=== PATIENT | female | born 1945 | race Two or more races ===

== ENCOUNTER 2024-04-04 15:39 | Outpatient (RCR) | payer OTHER, SELFPAY | END 2024-04-29 23:59 | disposition home or self-care (01) | LOC: SCTC 15:39 | PROVIDERS: PCP Family Medicine; Referring Provider Family Medicine; Visit Provider Nurse Practitioner Family | DX: D47.3 Essential (hemorrhagic) thrombocythemia (principal); D47.2 Monoclonal gammopathy; Z79.82 Long term (current) use of aspirin; D75.89 Other specified diseases of blood and blood-forming organs; I25.10 Atherosclerotic heart disease of native coronary artery without angina pectoris; E03.9 Hypothyroidism, unspecified | CPT/HCPCS: 99212; G0463 ==

== ENCOUNTER → 2024-04-12 | Outpatient (CLI) | payer OTHER, SELFPAY ==
[2024-04-12 13:14] LABS: Basophils % (Auto) 1 % (0-2.5); Eosinophils % (Auto) 1 % (0-10); Hematocrit 31.9 % (36.0-46.0); Hemoglobin 10.7 g/dL (12.0-16.0); Immature Granulocytes % (Auto) 1 % (0-0); Immature Granulocytes Auto 0.02 Thou/mm3 (0.00-0.00); Lymphocytes # (Auto) 0.6 Thou/mm3 (1.0-4.8); Lymphocytes % (Auto) 15 % (10-50); Mean Corpuscular HGB Conc 33.5 g/dl (31.0-37.0); Mean Corpuscular Hemoglobin 42.6 pg (25.0-35.0); Mean Corpuscular Volume 127 fL (80-100); Monocytes # (Auto) 0.3 Thou/mm3 (0.0-0.8); Monocytes % (Auto) 8 % (0-12); Neutrophils % (Auto) 76 % (37-80); Nucleated Red Blood Cell % 0 /100 WBC (0); Platelet Count 342 Thou/mm3 (140-440); RDW Standard Deviation 63.5 fL (36.4-46.3); Red Blood Count 2.51 Miln/mm3 (4.00-5.20); White Blood Count 3.9 Thou/mm3 (3.6-11.0)
[2024-04-12 13:26] LABS: Glucose Estimated Average 91 mg/dL (80-131); Hemoglobin A1C 4.8 % Hgb (4.8-6.0)
== END | disposition home or self-care (01) ==
LOC: COPL 12:29
PROVIDERS: PCP Nurse Practitioner Family; Referring Provider Nurse Practitioner Family; Visit Provider Nurse Practitioner Family
DX: G30.9 Alzheimer's disease, unspecified (principal); D64.9 Anemia, unspecified; R82.4 Acetonuria
CPT/HCPCS: 36415; 83036; 85025

== ENCOUNTER → 2024-05-03 | Outpatient (CLI) | payer OTHER, SELFPAY ==
--- NOTE | 2024-05-03 15:30 | XR_ITS ---
Examination: MRI brain without intravenous contrast. Date and time of exam: May 03, 2024 1534 hours Comparison April 18, 2020 INDICATIONS: 3 falls this year with injury to the head, followed by headaches numbness in the extremities one year Technique: Multiple axial and sagittal images of the brain obtained. Siemens high-resolution 1.5 Kylie short bore scanners utilized. Sagittal sections, T1-weighted, TR 500, TE 14, are performed. Axial sections proton-density and T2-weighted have been obtained. Inversion recovery axial images, TR 9, 260, TE 111, TI 2500. Diffusion weighted images, axial sections, TR 4800, TE 128, B value 1000 Axial sections, ADC map, TR 4800, TE 128 Findings: Enlargement of the sella turcica is not present. The optic chiasm and infundibular are not remarkable. Prepontine and interpeduncular cisterns are not enlarged. There is no localized enlargement of the medulla or annalise. Fourth ventricle and cerebellar tonsils appear normal in position. No subacute area of hemorrhage density is seen. Mass in the cerebellopontine angle region is not evident. Globes symmetrical. Orbital musculature including medial lateral rectus muscles do not exhibit abnormality. Diffusion-weighted images demonstrate no focus of restricted diffusion. 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 Impression: Negative for acute hemorrhage mass effect or midline shift No acute infarct Chronic microvascular white matter change
== END | disposition home or self-care (01) ==
LOC: SMRI 15:03
PROVIDERS: PCP Nurse Practitioner Family; Referring Provider Nurse Practitioner Family; Visit Provider Nurse Practitioner Family
DX: R90.82 White matter disease, unspecified (principal)
CPT/HCPCS: 70551

== ENCOUNTER → 2024-08-17 | Outpatient (CLI) | payer OTHER, SELFPAY ==
[2024-08-17 11:29] LABS: Basophils % (Auto) 0 % (0-2.5); Eosinophils % (Auto) 1 % (0-10); Hematocrit 34.5 % (36.0-46.0); Hemoglobin 11.8 g/dL (12.0-16.0); Immature Granulocytes % (Auto) 0 % (0-0); Immature Granulocytes Auto 0.01 Thou/mm3 (0.00-0.00); Lymphocytes # (Auto) 0.6 Thou/mm3 (1.0-4.8); Lymphocytes % (Auto) 13 % (10-50); Mean Corpuscular HGB Conc 34.2 g/dl (31.0-37.0); Mean Corpuscular Hemoglobin 42.6 pg (25.0-35.0); Mean Corpuscular Volume 125 fL (80-100); Monocytes # (Auto) 0.3 Thou/mm3 (0.0-0.8); Monocytes % (Auto) 7 % (0-12); Neutrophils # (Auto) 3.4 Thou/mm3 (1.8-7.7); Neutrophils % (Auto) 78 % (37-80); Nucleated Red Blood Cell % 0 /100 WBC (0); Platelet Count 423 Thou/mm3 (140-440); RDW Standard Deviation 65.1 fL (36.4-46.3); Red Blood Count 2.77 Miln/mm3 (4.00-5.20); White Blood Count 4.4 Thou/mm3 (3.6-11.0)
[2024-08-17 11:35] LABS: Glucose Estimated Average 94 mg/dL (80-131); Hemoglobin A1C 4.9 % Hgb (4.8-6.0)
[2024-08-17 11:53] LABS: T4 (Thyroxine) 6.7 mcg/dL (4.5-10.9)
[2024-08-17 11:56] LABS: Alanine Aminotransferase 19 U/L (10-49); Albumin, Serum 4.2 gm/dL (3.4-4.8); Albumin/Globulin Ratio 2.3 (1.2-2.2); Alkaline Phosphatase 75 U/L (46-116); Anion Gap 8 (7-16); Aspartate Amino Transferase 14 U/L (0-34); BUN/Creatinine Ratio 18 Ratio (12-20); Bilirubin,Total 1.1 mg/dL (0.3-1.2); Blood Urea Nitrogen 18 mg/dL (9-23); Calcium 9.6 mg/dL (8.3-10.6); Calcium (Corrected) 9.6 mg/dL (8.5-10.1); Carbon Dioxide 25.5 mMol/L (20.0-31.0); Cardiac Risk Estimate 2.7 RATIO (3.7-5.6); Chloride 109 mMol/L (98-107); Cholesterol 134 mg/dL (132-200); Globulin 1.8 gm/dL (2.3-3.5); Glucose 92 mg/dL (74-106); HDL Cholesterol 49 mg/dL (40-60); LDL Cholesterol,Calculated 59 mg/dL (0-130); Osmolality,Calculated 285 (275-295); Potassium 4.4 mMol/L (3.4-5.1); Sodium 142 mMol/L (136-145); Triglycerides 129 mg/dL (30-150); eGFR 58 See Note
[2024-08-17 12:57] LABS: Path Review Blood Smear Sent to Pathologist
[2024-08-22 07:46] LABS: Thyroid Peroxidase Antibodies* <1 IU/mL (<9)
== END | disposition home or self-care (01) ==
LOC: COPL 10:08
PROVIDERS: PCP Nurse Practitioner Family; Referring Provider Nurse Practitioner Family; Visit Provider Nurse Practitioner Family
DX: E03.9 Hypothyroidism, unspecified (principal); I10 Essential (primary) hypertension; D52.9 Folate deficiency anemia, unspecified
CPT/HCPCS: 36415; 80053; 80061; 82746; 83036; 84436; 84443; 85025; 86376

== ENCOUNTER → 2024-12-12 | Outpatient (CLI) | payer OTHER, SELFPAY ==
[2024-12-12 15:42] LABS: Basophils # (Auto) 0.0 Thou/mm3 (0.0-0.2); Basophils % (Auto) 1 % (0-2.5); Eosinophils # (Auto) 0.0 Thou/mm3 (0.0-0.5); Eosinophils % (Auto) 1 % (0-10); Hematocrit 34.7 % (36.0-46.0); Hemoglobin 11.8 g/dL (12.0-16.0); Immature Granulocytes Auto 0.02 Thou/mm3 (0.00-0.00); Lymphocytes # (Auto) 0.7 Thou/mm3 (1.0-4.8); Lymphocytes % (Auto) 18 % (10-50); Mean Corpuscular HGB Conc 34.0 g/dl (31.0-37.0); Mean Corpuscular Hemoglobin 41.4 pg (25.0-35.0); Mean Corpuscular Volume 122 fL (80-100); Monocytes # (Auto) 0.2 Thou/mm3 (0.0-0.8); Monocytes % (Auto) 6 % (0-12); Neutrophils # (Auto) 2.7 Thou/mm3 (1.8-7.7); Neutrophils % (Auto) 74 % (37-80); Nucleated Red Blood Cell # 0.00 Thou/mm3 (0.00-0.00); Nucleated Red Blood Cell % 0 /100 WBC (0); Platelet Count 481 Thou/mm3 (140-440); RDW Standard Deviation 60.5 fL (36.4-46.3); Red Blood Count 2.85 Miln/mm3 (4.00-5.20); White Blood Count 3.6 Thou/mm3 (3.6-11.0)
[2024-12-12 15:55] LABS: Alanine Aminotransferase 18 U/L (10-49); Albumin, Serum 4.2 gm/dL (3.4-4.8); Albumin/Globulin Ratio 1.9 (1.2-2.2); Alkaline Phosphatase 77 U/L (46-116); Anion Gap 9 (7-16); Aspartate Amino Transferase 22 U/L (0-34); BUN/Creatinine Ratio 18 Ratio (12-20); Bilirubin,Total 1.1 mg/dL (0.3-1.2); Blood Urea Nitrogen 18 mg/dL (9-23); Calcium 9.3 mg/dL (8.3-10.6); Calcium (Corrected) 9.3 mg/dL (8.5-10.1); Carbon Dioxide 25.2 mMol/L (20.0-31.0); Chloride 111 mMol/L (98-107); Creatinine (Component) 1.0 mg/dL (0.6-1.3); Globulin 2.2 gm/dL (2.3-3.5); Glucose 92 mg/dL (74-106); Osmolality,Calculated 290 (275-295); Potassium 4.0 mMol/L (3.4-5.1); Sodium 145 mMol/L (136-145); Total Protein 6.4 gm/dL (5.7-8.2); eGFR 58 See Note
[2024-12-12 15:57] LABS: Ferritin 64 ng/mL (7.3-270.7); Folate 12.99 ng/mL (>5.38); Iron 91 mcg/dL (50-170); Percent Iron Saturation 30 % (20-55); Total Iron Binding Capacity 299 mcg/dL (250-425); Unsaturated Iron Binding 208 (225-295); Vitamin B12 370 pg/mL (211-911)
[2024-12-17 13:51] LABS: Albumin 4.2 g/dL (3.8-4.8); Alpha-1-Globulin 0.2 g/dL (0.2-0.3); Alpha-2-Globulin 0.5 g/dL (0.5-0.9); Beta-1-Globulin 0.4 g/dL (0.4-0.6); Beta-2-globulin 0.3 g/dL (0.2-0.5); Gamma Globulin 0.7 g/dL (0.8-1.7); Immunoglobulin A 148 mg/dL (70-320); Immunoglobulin G 823 mg/dL (600-1540); Kappa Light Chain, Free 33.7 mg/L (3.3-19.4); Lambda Light Chain, Free 18.1 mg/L (5.7-26.3)
[2024-12-18 07:47] LABS: Beta 2 Microglobulin 2.44 mg/L (< OR = 2.51); Immunoglobulin M 33 mg/dL (50-300); Kappa/Lambda, Free Ratio 1.86 (0.26-1.65); Protein, total, serum 6.3 g/dL (6.1-8.1)
== END | disposition home or self-care (01) ==
LOC: SCTO 14:51
PROVIDERS: PCP Family Medicine; Referring Provider Nurse Practitioner Family; Visit Provider Nurse Practitioner Family
DX: D47.3 Essential (hemorrhagic) thrombocythemia (principal)
CPT/HCPCS: 36415; 80053; 82232; 82607; 82728; 82746; 82784; 83521; 83540; 83550; 84155; 84165; 85025; 86334

== ENCOUNTER 2024-12-21 14:04 | Outpatient (RCR) | payer OTHER, SELFPAY | END 2024-12-28 23:59 | disposition home or self-care (01) | LOC: SCTC 14:04 | PROVIDERS: PCP Nurse Practitioner Family; Referring Provider Nurse Practitioner Family; Visit Provider Internal Medicine Hematology & Oncology | DX: D47.3 Essential (hemorrhagic) thrombocythemia (principal); D47.2 Monoclonal gammopathy; D64.9 Anemia, unspecified; D22.5 Melanocytic nevi of trunk | CPT/HCPCS: 99212; G0463 ==

== ENCOUNTER → 2025-03-19 | Outpatient (CLI) | payer OTHER, SELFPAY ==
[2025-03-19 14:10] LABS: Alanine Aminotransferase 12 U/L (10-49); Albumin, Serum 4.3 gm/dL (3.4-4.8); Albumin/Globulin Ratio 2.2 (1.2-2.2); Alkaline Phosphatase 86 U/L (46-116); Anion Gap 10 (7-16); Aspartate Amino Transferase 21 U/L (0-34); BUN/Creatinine Ratio 14 Ratio (12-20); Bilirubin,Total 0.5 mg/dL (0.3-1.2); Blood Urea Nitrogen 13 mg/dL (9-23); Calcium 9.8 mg/dL (8.3-10.6); Calcium (Corrected) 9.8 mg/dL (8.5-10.1); Carbon Dioxide 25.9 mMol/L (20.0-31.0); Chloride 108 mMol/L (98-107); Creatinine (Component) 0.9 mg/dL (0.6-1.3); Globulin 2.0 gm/dL (2.3-3.5); Glucose 94 mg/dL (74-106); LDH (Lactate Dehydrogenase) 243 U/L (120-246); Osmolality,Calculated 286 (275-295); Potassium 3.9 mMol/L (3.4-5.1); Sodium 144 mMol/L (136-145); Total Protein 6.3 gm/dL (5.7-8.2); eGFR > 60 See Note
[2025-03-19 14:12] LABS: Basophils # (Auto) 0.0 Thou/mm3 (0.0-0.2); Basophils % (Auto) 1 % (0-2.5); Eosinophils # (Auto) 0.1 Thou/mm3 (0.0-0.5); Eosinophils % (Auto) 3 % (0-10); Hematocrit 36.9 % (36.0-46.0); Hemoglobin 12.2 g/dL (12.0-16.0); Immature Granulocytes Auto 0.02 Thou/mm3 (0.00-0.00); Immature Reticulocyte Fraction 19.2 % (3.0-15.9); Lymphocytes # (Auto) 0.9 Thou/mm3 (1.0-4.8); Lymphocytes % (Auto) 20 % (10-50); Mean Corpuscular HGB Conc 33.1 g/dl (31.0-37.0); Mean Corpuscular Hemoglobin 38.7 pg (25.0-35.0); Mean Corpuscular Volume 117 fL (80-100); Monocytes # (Auto) 0.3 Thou/mm3 (0.0-0.8); Monocytes % (Auto) 8 % (0-12); Neutrophils # (Auto) 3.0 Thou/mm3 (1.8-7.7); Neutrophils % (Auto) 68 % (37-80); Nucleated Red Blood Cell # 0.00 Thou/mm3 (0.00-0.00); Nucleated Red Blood Cell % 0 /100 WBC (0); Platelet Count 741 Thou/mm3 (140-440); RDW Standard Deviation 63.8 fL (36.4-46.3); Red Blood Count 3.15 Miln/mm3 (4.00-5.20); Reticulocyte % (Auto) 2.7 % (0.5-1.5); Reticulocyte Absolute Auto 85.7 Biln/L (25.0-75.0); Reticulocyte Hgb Content 38.6 pg (28.0-35.0); White Blood Count 4.5 Thou/mm3 (3.6-11.0)
[2025-03-19 14:15] LABS: Ferritin 51 ng/mL (7.3-270.7); Folate 7.11 ng/mL (>5.38); Iron 105 mcg/dL (50-170); Percent Iron Saturation 32 % (20-55); Total Iron Binding Capacity 319 mcg/dL (250-425); Unsaturated Iron Binding 214 (225-295); Vitamin B12 1068 pg/mL (211-911)
[2025-03-19 17:50] LABS: Path Review Blood Smear Sent to Pathologist
[2025-03-29 06:27] LABS: Haptoglobin* 36 mg/dL (43-212)
== END | disposition home or self-care (01) ==
LOC: SCTO 12:29
PROVIDERS: PCP Family Medicine; Referring Provider Nurse Practitioner Family; Visit Provider Nurse Practitioner Family
DX: D47.3 Essential (hemorrhagic) thrombocythemia (principal)
CPT/HCPCS: 36415; 80053; 82607; 82728; 82746; 83010; 83540; 83550; 83615; 85025; 85046

== ENCOUNTER 2025-03-20 15:29 | Outpatient (RCR) | payer OTHER, SELFPAY ==
--- NOTE | 2025-03-21 13:46 | CTCFLWUP_ITS ---
Patient: JUSTINA YAO : 1945 Page 4 of 6 FOLLOW UP NOTE DATE OF SERVICE: 03/20/2025 NAME: JUSTINA YAO ACCOUNT: [id number] : 1945 AGE: 79 INTERVAL HISTORY: Patient is doing well. Patient is on hydroxyurea and have no complaints from it. Patient is very active. ONCOLOGY HISTORY: DIAGNOSIS: Essential thrombocythemia, Oz 2 V6 17F mutation positive. Bone marrow biopsy negative, 11/10/2022. Currently on hydroxyurea 1 g p.o. daily, aspirin 81 mg p.o. daily. Monoclonal gammopathy of undetermined significance. History of dementia HISTORY OF PRESENT ILLNESS: Ms. Yao is here at [facility] clinic accompanied by her . Denies any complaints or concerns. Labs from 04/12/2024 show hemoglobin 10.7, MCV 127. Denies any cough, chest pain, abdominal pain or leg cramps, fever. She is currently on hydroxyurea 1 g as well as aspirin 81 mg daily. She is tolerating these medications well. Patient ambulating well without assistance. Reports good appetite and energy levels. HISTORY: Justina Yao is a 79-year-old ENG speaking female with history of hypothyroidism, hypertension, coronary artery disease had labs drawn on 02/20/2020. 02/20/2020: Platelet count 1,063,000, WBC 9.9, hemoglobin 15.1 02/28/2020: Platelets 1,110,000, WBC 9.9, ANC 7.4, hemoglobin 15.2, MCV 92. Oz 2 V6 17F mutation positive. Hydroxyurea 1 g p.o. daily started. Patient continues to take aspirin 81 mg p.o. daily. 03/28/2020: Platelets 564,000, WBC 6.0, ANC 4.0, hemoglobin 14.7, MCV 93. 04/17/2020: Platelets 295,000, WBC 5.6, hemoglobin 13.9. 04/18/2020: MRI of the brain with and without contrast? 04/22/2020: CT scan of the abdomen and pelvis with IV contrast? 05/05/2020: Platelet count 329,000, WBC 4.3, hemoglobin 13.1, alkaline phosphatase 102, calcium) corrected 9.5, creatinine 0.9, hemoglobin 13.1, globulins 1.9. 05/21/2020: Immunofixation?IgG kappa monoclonal protein. evaluation reveals ONE restricted band(s) migrating In the GAMMA region(s), respectively. Estimated concentration(s): 0.2 g/dL, respectively. 07/09/2020: Bone scan? 07/12/2020: Skeletal survey? 08/15/2020: MRI of the lumbar spine with and without contrast? 08/01/2020: Serum immunofixation study revealed 1 IgG kappa monoclonal protein migrating in the gamma region with an estimated concentration of 0.2. 10/17/2020: Bone marrow biopsy and aspiration? 10/16/2020: platelet count 324,000, hemoglobin 12.4, MCV 115, WBC 4.6 with an ANC of 3.1 09/11/2021: Platelet count 470,000, WBC 3.8, ANC 2.4, hemoglobin 12.8, MCV 120,000. 07/16/2022: Platelet count 462,000, WBC 5.4, ANC 4.0, platelets 122,000. 06/10/2023: Platelet count 486,000, WBC 4.6, ANC 3.4, hemoglobin 10.7, MCV 128,(M protein)abnormal protein band 0.1 10/11/2023: Platelet count 213,000, WBC 2.5, ANC 1.7, hemoglobin 9.8, MCV 130,(M protein)abnormal protein band 0.1 11/22/2023: Platelets 279,000, WBC 2.9, ANC 2.0, hemoglobin 10.2, MCV 134 04/21/2024: Platelet count 342,000, WBC 3.9, ANC 3.0, hemoglobin 10.7, MCV 127, (M protein)abnormal protein band 0.2 OTHER MEDICAL HISTORY/CONDITIONS: FAMILY HISTORY: SOCIAL HISTORY: [employer]OTOENGRA[employer]ING [employer]OO[employer] HISTORY: Vaginal?Bleeding:?0-None MEDICATIONS: 1. aspirin - 81 mg 1 tab Daily 2. atorvastatin - 80 mg 1 tab Daily 3. clopidogrel - 75 mg 1 tab Daily 4. donepezil - 5 mg 1 tab Every day before sleep 5. hydroxyurea - 500 mg 2 Capsule two cap po q daily 6. hydroxyurea - 500 mg 2 Capsule Daily 7. levothyroxine - 100 mcg 1 tab Daily 8. metoprolol succinate - 25 mg 1 tab Twice a Day 9. sertraline - 50 mg 1.5 tab Every day before sleep Medications Last Reconciled by Earlene Escalera MD on 03/20/2025 ALLERGIES: No Known Drug Allergies REVIEW OF SYSTEMS: A complete 14-point review of systems was performed and is negative except as noted in interval history. PHYSICAL EXAMINATION: VITAL SIGNS: Temperature?96.2, B/P?145/86, Oxygen?Saturation?98% Weight?154?lbs PAIN: 0 - No pain ECOG Performance Status: 0 - Asymptomatic and fully active GENERAL APPEARANCE: Appears well, in no apparent distress, appropriately interactive. HEENT: Normocephalic, no temporal wasting, normal conjunctiva, no scleral icterus, normal hearing, lips without lesions, neck normal range of motion. CARDIOVASCULAR: Not assessed. PULMONARY: Normal respiratory effort, no respiratory distress or use of accessory muscles, speaking in full sentences, no tachypnea. EXTREMITIES: No pedal edema or cyanosis. SKIN: Normal skin appearance. NEUROLOGIC: Alert and oriented x4. PSHYCHIATRIC: Appropriate affect, mood normal, behavior normal, intact thought and speech. LABORATORY DATA: I have personally reviewed and interpreted each of the patient?s relevant lab tests, abnormal findings are below: Date 03/19/25 ??WHITE?BLOOD?COUNT?(Thou/mm3) 4.5 ??RED?BLOOD?COUNT?(Miln/mm3) 3.15?L ??HEMOGLOBIN?(gm/dl) 12.2 ??HEMATOCRIT?(%) 36.9 ??PLATELET?COUNT?(Thou/mm3) 741?H ??NEUTROPHILS?%,?AUTO?(%) 68 ??LYMPH?%,?AUTO?(%) 20 ??NEUTROPHILS,?AUTO?(Thou/mm3) 3.0 ??GLUCOSE,RANDOM?(mg/dL) 94 ??BLOOD?UREA?NITROGEN?(mg/dL) 13 ??CREATININE?(mg/dL) 0.90 ??SODIUM?(mmol/L) 144 ??POTASSIUM?(mmol/L) 3.9 ??CHLORIDE?(mmol/L) 108?H ??CrCl?(CandG)?(ml/min) 50.45 ??AST/SGOT?(Unit/L) 21 ??ALT/SGPT?(Unit/L) 12 ??ALKALINE?PHOSPHATASE?(Unit/L) 86 ??BILIRUBIN,?TOTAL?(mg/dL) 0.5 ??PROTEIN?TOTAL?(gm/dl) 6.3 ??ALBUMIN,?SERUM?(gm/dl) 4.3 ??GLOBULIN?(gm/dl) 2.0?L ??ALBUMIN/GLOBULIN?RATIO 2.2 ??CALCIUM,?SERUM?(mg/dL) 9.8 ??CALCIUM?SERUM?(CORRECTED)?(mg/dL) 9.8 ??LDH,?TOTAL?(Unit/L) 243 ??TOTAL?IRON?BINDING?CAP?(S*)?(mcg/dL) 319 ??UNBOUND?IBC?(mcg/dL) 214?L ASSESSMENT/PLAN: Ro Yao, a follow-up patient with a history of essential thrombocythemia, monoclonal gammopathy of undetermined significance (MGUS), and dementia, presents for routine monitoring and management of her conditions. Essential Thrombocythemia, JAK2 V6 17F mutation positive Assessment: Patient has a history of essential thrombocythemia. She is currently on hydroxyurea 1 gram and aspirin 81 mg for management. The patient denies any fatigue, infections, bruising, or bleeding. Her CBC will be reassessed in one month to monitor for cytopenia. The patient remains clinically stable on the current treatment regimen. Plan: - Continue hydroxyurea 1 gram daily - Continue aspirin 81 mg daily Platelets are stable monoclonal Gammopathy of Undetermined Significance (MGUS) Assessment: Patient has a history of MGUS. Labs show persistence of low level monoclonal IgG. No clinical symptoms or crab criteria) plan: - Repeat labs in 3 months. Macrocytosis Assessment: Patient has macrocytosis, likely secondary to hydroxyurea use. Hemoglobin are within normal limits. Plan: - Continue monitoring hemoglobin levels Iron Supplementation Assessment: Patient reports taking daily iron supplements as prescribed by her PCP. Iron studies, including iron panel and iron saturation, are within normal limits. Plan: -Stop iron Preventive Care Assessment: Patient had normal colonoscopy and endoscopy in 2019. She continues to follow up with her PCP for management of coronary artery disease and hypothyroidism. Plan: - Continue regular follow-ups with PCP for management of coronary artery disease and hypothyroidism RETURN TO CLINIC: I reviewed the diagnosis, prognosis, and recommended treatment/procedure options with the patient (and/or their legal dermatology sales representative), including the potential benefits, risks, side effects and alternative therapies. We also discussed the option of no treatment and the possibility of clinical trial participation, if applicable. All questions were addressed, and they demonstrated understanding. They provided informed consent to proceed with the proposed plan of care. BILLING AND COMPLIANCE: I reviewed external records from providers outside my specialty as summarized above. I spent a total of 50 minutes on this patient?s care on the day of their visit excluding time spent related to any billed procedures. This time includes time spent with the patient as well as time spent documenting in the medical record, reviewing patients records and tests, obtaining history, placing orders, communicating with other healthcare professionals, counseling the patient, family or caregiver, and/or care coordination for the diagnoses above. Electronically Signed by: Jean Pierre Manrique MD T: 1:44 PM CC: PCP: Edmar Veronica Referring: Edmar Veronica This document was completed utilizing speech recognition software. Grammatical errors, random word insertions, pronoun errors, and incomplete sentences are an occasional consequence of this system due to software limitations, ambient noise, and hardware issues. Any formal questions or concerns about the content, text or information contained within the body of this dictation should be directly addressed to the provider for clarification.
== END 2025-03-30 23:59 | disposition home or self-care (01) ==
LOC: SCTC 15:29
PROVIDERS: PCP Nurse Practitioner Family; Referring Provider Nurse Practitioner Family; Visit Provider Internal Medicine Hematology & Oncology
DX: D47.3 Essential (hemorrhagic) thrombocythemia (principal); D47.2 Monoclonal gammopathy; D75.89 Other specified diseases of blood and blood-forming organs
CPT/HCPCS: 99212; G0463